=== PATIENT | female | born 1935 | race Caucasian/White ===

== ENCOUNTER 2017-09-03 11:20 | Day surgery (SDC) | payer MEDICARE, OTHER ==
[2017-09-03] MEDS ORDERED: PROPOFOL 20 ML (13:04)
[2017-09-03] MEDS ORDERED: ROPIVACAINE 0.5 % 30 ML VIAL (13:04)
[2017-09-03] MEDS ORDERED: CEFAZOLIN 1 GM INJ (13:04)
[2017-09-03] MEDS ORDERED: ROCURONIUM 50 MG INJ (13:04)
[2017-09-03] MEDS ORDERED: BUPIVACAINE 0.5% (SDV) 30 ML INJ (13:06)
[2017-09-03] MEDS ORDERED: PHENYLephrine (100 MCG/ML) 5ML SYG (13:34)
[2017-09-03] MEDS ORDERED: ONDANSETRON 4 MG INJ (13:39)
[2017-09-03] MEDS ORDERED: METOCLOPRAMIDE 10 MG INJ (13:39)
[2017-09-03] MEDS ORDERED: DEXAMETHASONE 4 MG/ML 1 ML INJ (13:39)
[2017-09-03] MEDS: POLYMYXIN/BACITRACIN 1L IRRIG (13:58)
[2017-09-03] MEDS: BACITRACIN/POLYMYXIN 28.35 GM OINT TOP (13:58)
[2017-09-03] MEDS ORDERED: LABETALOL HCL 20MG INJ (14:50)
[2017-09-03] MEDS ORDERED: MEPERIDINE 25 MG INJ IV (15:00)
[2017-09-03] MEDS ORDERED: EPHEDrine SULFATE 50 MG/5 ML SYG IV (15:00)
[2017-09-03] MEDS ORDERED: METOCLOPRAMIDE 10 MG INJ IV (15:00)
[2017-09-03] MEDS ORDERED: ONDANSETRON 4 MG INJ IV (15:00)
[2017-09-03] MEDS ORDERED: LABETALOL HCL 20MG INJ IV (15:00)
[2017-09-03] MEDS ORDERED: FENTAnyl 50 MCG/ML VIAL IV ×3 (15:00)
[2017-09-03] MEDS ORDERED: hydrALAzine 20 MG INJ IV (15:00)
[2017-09-03] MEDS ORDERED: HYDROmorphONE 1 MG/5 ML IV SYRINGE IV ×3 (15:00)
[2017-09-03] MEDS ORDERED: DIPHENHYDRAMINE 50 MG INJ IV (15:00)
[2017-09-03] MEDS ORDERED: morphine 2 MG INJ IV (16:00)
[2017-09-03] MEDS: OXYCODONE/ACETAMINOPHEN (5/325) TAB PO (16:11)
== END 2017-09-03 18:25 | disposition home or self-care (01) ==
LOC: SDS 11:20
DX: M20.42 Other hammer toe(s) (acquired), left foot (principal); E78.5 Hyperlipidemia, unspecified
CPT/HCPCS: 28285; 73630-LT; 82306